=== PATIENT | female | born 1970 | race Caucasian/White ===

== ENCOUNTER 2016-09-07 12:14 | Emergency (ER) | payer OTHER ==
[~2016-09-07] VITALS: Ht 154.9 cm; Wt 88.2 kg
[~2016-09-07 12:14] MED LIST: AMOXICILLIN500 M1 PO; BENADRYL25 MG PO; MUCINEX D1 TABLET PO; ULTRAM50 MG PO; VENTOLIN HFA18 GM IH
[2016-09-07 13:38] LABS: HEMATOCRIT 35.7 % (36.0-46.0); MCH 24.9 PG (29.0-34.0); MCHC 31.9 G/DL (30.0-36.0); MCV 77.9 FL (83-99); MEAN PLAT.VOLUME 9.2 uM^3 (9.5-12.4); PLATELET COUNT 432 K/uL (156-360); RBC DIS.WIDTH-CV 16.5 % (11.8-14.6); RED BLOOD COUNT 4.58 M/uL (3.80-5.20); WHITE BLOOD COUNT 12.1 K/uL (4.1-10.2)
[2016-09-07 13:49] LABS: CHLORIDE 105 mEq/L (99-109); POTASSIUM 3.9 mEq/L (3.7-5.4); SODIUM 138 mEq/L (136-147)
[2016-09-07 13:52] LABS: GLUCOSE 103 mg/dL (70-99)
[2016-09-07 13:53] LABS: ANION GAP 10 MEQ/L (2-14)
[2016-09-07 13:54] LABS: TOTAL BILIRUBIN 0.2 mg/dL (0.0-1.0)
[2016-09-07 13:55] LABS: ALKALINE PHOSPHATASE 67 IU/L (3-129); GFR ESTIMATE (CALCULATED) > 59 mL/min/
[2016-09-07 13:56] LABS: UREA NITROGEN (BUN) 8 mg/dL (9-23)
[2016-09-07 14:03] LABS: D-DIMER ELISA < 0.15 mg/L FEU (< 0.57)
[2016-09-07] MEDS ORDERED: LASIX20 MG PO (16:04)
[2016-09-07 16:14] VITALS: BP 131/81
== END 2016-09-07 16:20 | disposition home or self-care (01) ==
LOC: EME 12:14
PROVIDERS: Emergency Medicine
DX: R60.0 Localized edema (principal); F17.200 Nicotine dependence, unspecified, uncomplicated
CPT/HCPCS: 71020; 80053; 83880; 85027; 85379; 99281; 99285